=== PATIENT | female | born 1935 | race Caucasian/White ===

== ENCOUNTER 2016-10-28 10:09 | Day surgery (SDC) | payer MEDICARE, BC ==
--- OUTSIDE RECORDS SUMMARY | 2016-10-28 10:37 | XMS REPORT | Continuity of Care Document ---
:1935 Author Organization [facility] ([facility]) Address [address] [place] [address] Phone [phone] Care Team Providers Name Role Phone Stephen Basurto Primary Care Provider [phone] Source Comments This disclosure is being made pursuant to the Care Everywhere program, applicable federal and state laws, and may not contain all informaitonavailable regarding this patient.[facility] ([facility]) Active Allergies and Adverse Reactions Allergen Noted Date Severity Reactions Comments Ciprofloxacin Urticaria (Hives) Current Medications Prescription Sig. Disp. Refills Start Date End Date Status aspirin 81 mg EC tablet Take 81 mg by 02/27/2008 Active mouth. take 1 tablet (81MG) by ORAL route every day. Pt takes 3 times per week metoPROLol tartrate 25 mg Take 25 mg by 01/01/2010 Active tablet mouth 2 times daily pantoprazole (PROTONIX) 40 mg Take 40 mg by Active EC tablet mouth daily SYNTHROID 75 mcg tablet Take 75 mcg by 03/05/2016 Active mouth daily. atorvastatin 40 mg tablet Take 80 mg by 02/04/2016 Active mouth daily. multivitamin tablet Take 1 tablet Active by mouth daily. HYDROcodone-acetaminophen Take 1 tablet Active 5-325 mg per tablet by mouth every 4 hours as needed. acetaminophen (TYLENOL EXTRA Take 1,000 mg Active STRENGTH) 500 mg tablet by mouth every 6 hours as needed. CALCIUM CARBONATE/VITAMIN D3 Take by mouth Active (CALTRATE WITH VITAMIN D3 PO) daily. hydroCHLOROthiazide 25 mg Take 25 mg by 07/24/2016 Active tablet mouth daily. Active Problems Problem Noted Date Chronic chest pain 02/24/2015 Overview: Formatting of this note may be different from the original. STRESS TESTS: Pers MPI (Septal wall ischemia with a fixed defect of theterior wall near the apex.) - 07/22/2004 [facility] (9mins. HR 143. Nondiagnostic stress echo.) - 10/03/1996 [facility] (8min. HR 145. Neg stress echo.) - 10/22/1995 [facility] (8mins and 4 secs. HR 152. 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 ECHO/MUGA: Echo (LA enlargement. LV enlargement with marked LVH and abnormal septal motion secondary to interventricular conduction delay. Global decrease in LV function. EF 35-40%. Trace MR. 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 CARDIOVASCULAR PROCEDURES [employer]PER[employer]: PCI (PTCA: Distal RCA (2.5), Lmain normal. LAD normal. Cx normal. RCA mid 90% stenosis (Skinny). EF 59%.) - 05/06/1995 ECHO/MUGA: Echo (LA enlargement. LV enlargement with marked LVH and abnormal septal motion secondary to interventricular conduction delay. Global decrease in LV function. EF 35-40%. Trace MR. Mild TR.) - 09/11/2004 STRESS TESTS: Pers MPI (Septal wall ischemia with a fixed defect of theterior wall near the apex.) - 07/22/2004 [facility] (9mins. HR 143. Nondiagnostic stress echo.) - 10/03/1996 [facility] (8min. HR 145. Neg stress echo.) - 10/22/1995 [facility] (8mins and 4 secs. HR 152. Neg stress echo.) - 06/01/1995 Shaun MPI (Normal EF, Normal) - 12/26/2009 Essential hypertension Hyperlipidemia Most Recent Encounters Date Type Specialty Providers Description 08/13/2016 Office Visit Heart and Vascular Anh Torres MD Dx: Essential hypertension (Primary Dx) Social History Tobacco Use Types Packs/Day Years Used Date Former Smoker Quit: 03/17/1992 Last Filed Vital Signs Vital Sign Reading Time Taken Blood Pressure 104/56 08/13/2016 12:34 PM [employer] Pulse 62 08/13/2016 12:34 PM [employer] Temperature - - Respiratory Rate - - Height 1.626 m (5' 4") 08/13/2016 12:34 PM [employer] Weight 69.854 kg (154 lb) 08/13/2016 12:34 PM [employer] Body Mass Index 26.42 08/13/2016 12:34 PM [employer] Oxygen Saturation - - Plan of Care Date Type Specialty Providers Description 04/27/2017 Appointment Heart and Vascular Anh Torres MD Subj: Appointment [address] [address] [phone] (Fax) Health Maintenance Due Date Last Done Comments Hepatitis B Vaccine (1 of 3 - Primary 1935 Series) Tdap Vaccine 1945 Lipid Disorder Screening 1952 Td Vaccine 1953 Zoster Vaccine 1994 Osteoporosis Screening (DXA Bone Density) 1999 Pneumococcal Vaccine (1 of 2 - PCV13) 1999 Colonoscopy 11/18/2014 11/18/2004, 09/06/2003 Influenza Vaccine: Seasonal (#1) 03/09/2016 Results from Last 3 Months Not on file
--- NOTE | 2016-10-28 11:33 | OR ---
Anesthesia Pre Procedure Eval Date of Service: 10/28/16 Pre Procedure Evaluation: Last Vital Signs Temp 36.5 C 10/28/16 10:19 Pulse 62 10/28/16 10:19 Resp 16 10/28/16 10:19 BP 116/70 10/28/16 10:19 Pulse Ox 99 10/28/16 10:19 Anesthesia Pre Procedure Evaluation DATE: 10/28/2016 TIME: 11:30 INDICATIONS: Occipital neuralgia, extreme right sided radiating to the central portion of the mid parietal area. PAST MEDICAL HISTORY: Gisselle has had a history of right sided headache, pain initiating at the greater occipital nerve exit point and radiating to the central part of the right side of the skull she does also have tenderness occasionally towards the right ear in the approximate distribution of the lesser occipital nerve as well. She has used pain medications including extra strength Tylenol during the day and Percocet at night and it is no more than to cut the edge off of the pain. The pain has been relatively constant and has been interfering with her activities of daily living. EXAM: Heart regular; lungs clear ASSESSMENT OF MEDICAL STATUS: Appropriate candidate for occipital nerve block on the right. PLANNED PROCEDURE: Right greater and lesser occipital nerve block Home Medications: HOME MEDICATIONS Aspirin [Aspirin EC] 81 mg PO DAILY 08/26/15 [Last Taken Unknown] Atorvastatin Calcium [Lipitor] 80 mg PO DAILY 08/26/15 [Last Taken Unknown] Hydrochlorothiazide [Hydrodiuril] 25 mg PO DAILY 08/26/15 [Last Taken 10/28/16 08:00] Levothyroxine Sodium [Synthroid] 100 mcg PO DAILY 08/26/15 [Last Taken Unknown] Metoclopramide HCl [Reglan] 10 mg PO QID PRN #30 tab 08/26/15 [Last Taken Unknown] Metoprolol Tartrate [Lopressor] 25 mg PO BID 08/26/15 [Last Taken 10/28/16 08:00 ] Pantoprazole Sodium [Protonix] 20 mg PO DAILY 08/26/15 [Last Taken Unknown] Spironolactone [Aldactone] 12.5 mg PO DAILY 08/26/15 [Last Taken Unknown] Acetaminophen [Extra Strength Non-Aspirin] 500 mg PO Q4H PRN 10/28/16 [Last Taken Unknown] HYDROcodone/ACETAMINOPHEN [[place] 5-325] 0.5 tab PO HS PRN 10/28/16 [Last Taken Unknown]
[2016-10-28] MEDS ORDERED: DEXAMETHASONE SOD PHOSPHATE 10 MG/ML VIAL IJ ONE (11:51)
[2016-10-28] MEDS ORDERED: LIDOCAINE HCL/EPINEPHRINE 30 ML VIAL IJ ONE ×2 (11:51)
--- NOTE | 2016-10-28 12:16 | OR ---
Anesthesia Procedure Note - Anesthesia Procedure Note Date of Service: 10/28/16 Narrative: Vital Signs - Last Taken Temp 36.5 C 10/28/16 10:19 Pulse 71 10/28/16 12:00 Resp 18 10/28/16 12:00 BP 143/72 10/28/16 12:00 Pulse Ox 100 10/28/16 12:00 O2 Oxygen Delivery Method Room Air 10/28/16 12:09 Preoperative diagnosis: Occipital neuralgia, headaches. Procedure: Occipital nerve blocks Performed by: JOSE DAVID Sotelo CRNA Indications: Severe right-sided headaches, occipital neuralgia right greater and lesser occipital nerves Description of procedure and findings: Gisselle was taken to or #4 and placed in a sitting position the right side of the base of the skull was prepped with DuraPrep and draped sterile fashion. The right greater occipital nerve was palpated and easily identified by touch and the artery was located on ultrasound. Using a 25-gauge needle the base of the skull was contacted and 5 mL of lidocaine 1% with 5 mg of dexamethasone was injected the area of the lesser occipital nerve was then injected with 5 mg of dexamethasone and 5 mL of 1% lidocaine solution. There was some tenderness near the greater occipital nerve so an additional 5 mL of 1% lidocaine solution was injected at that site as well with relief of pain she was having. There was some soreness after the injection but the pain in the radiation of pain was gone. EBL: 0 Pain: Preprocedure 8-10 over 10, postprocedure 0/10. Postop diagnosis: Occipital neuralgia, headaches, relieved with Occipital Nerve block
[2016-10-28 12:44] VITALS: BP 100/63
== END 2016-10-28 10:10 | disposition home or self-care (01) ==
LOC: AMB 10:09
PROVIDERS: ATTEND Student in an Organized Health Care Education/Training Program
PROC: 3E0T3BZ Introduction of Anesthetic Agent into Peripheral Nerves and Plexi, Percutaneous Approach (ICD-10-PCS; 2016-10-28)
PROC: 3E0T33Z Introduction of Anti-inflammatory into Peripheral Nerves and Plexi, Percutaneous Approach (ICD-10-PCS; principal; 2016-10-28 11:00)
DX: M54.81 Occipital neuralgia (principal)

== ENCOUNTER 2017-03-29 11:56 | Day surgery (SDC) | payer MEDICARE, BC ==
[2017-03-29 13:45] VITALS: BP 115/67
== END 2017-03-29 11:57 | disposition home or self-care (01) ==
LOC: AMB 11:56
PROVIDERS: ATTEND Ophthalmology
PROC: 085K3ZZ Destruction of Left Lens, Percutaneous Approach (ICD-10-PCS; principal; 2017-03-29 13:00)
DX: H26.40 Unspecified secondary cataract (principal)